=== PATIENT | female | born 1945 | race Caucasian/White ===

== ENCOUNTER → 2016-12-03 | Outpatient (CLI) | payer MEDICARE, OTHER ==
[~2016-12-03] MED LIST: ADVIL200 MG PO; ALIGN4 MG PO; APRESOLINE25 MG PO; ASPIRIN EC81 MG PO; BIOTIN1000 MCG PO; COREG CR80 MG PO; CRESTOR5 MG PO; DIOVAN320 MG PO; K-TAB 10MEQ10 MEQ PO; LEVOTHROID (S125 MCG PO; LYRICA 50MG CAP50 MG PO; MAGOX 400400 MG PO; NORVASC5 MG PO; OMEGA-3 KRILL1 EAC3 PO; ULTRAM50 MG PO; VITAMIN D1000 UNI1 PO; VITAMIN D1000 UNIT PO
[2016-12-03 12:57] LABS: BASOPHIL % 0.3 %; EOSINOPHIL # 0.2 K/uL (0.0-0.5); EOSINOPHIL % 3.2 %; HEMATOCRIT 36.6 % (33.0-46.0); HEMOGLOBIN 11.8 g/dL (10.0-15.0); IMMATURE GRANULOCYTE % 0.5 %; LYMPHOCYTE # 1.6 K/uL (0.8-4.0); LYMPHOCYTE % 25.1 %; MCH 28.4 pg (27.0-34.0); MCHC 32.2 gm/dL (32.0-36.5); MONOCYTE # 0.6 K/uL (0.0-1.0); MONOCYTE % 9.5 %; MPV 9.8 fl (9.4-12.4); NEUTROPHIL % 61.4 %; NRBC % 0 /100WBC (0-0.00); PLATELET COUNT 220 K/uL (150-450); RBC 4.16 M/uL (3.50-5.50); RDW-CV 14.3 % (11.9-14.6); WBC 6.5 K/uL (4.0-11.0)
[2016-12-03 13:16] LABS: INR - (THERAPEUTIC) 0.95 (0.92-1.07)
[2016-12-03 13:20] LABS: ALBUMIN 3.5 gm/dL (3.5-5.0); ALK PHOS 83 IU/L (33-138); ALT 19 IU/L (12-78); ANION GAP 12.8 (10.0-19.0); AST 17 IU/L (10-40); BLOOD UREA NITROGEN 16 mg/dL (6-24); CHLORIDE 105 mMol/L (96-110); CO2 27 mMol/L (22-32); CPK 136 IU/L (21-215); CREATININE 0.9 mg/dL (0.5-1.1); ESTIMATED GFR (MDRD EQUATION) > 60; POTASSIUM 3.8 mMol/L (3.7-5.1); SODIUM 141 mMol/L (135-145); TOTAL BILIRUBIN 0.6 mg/dL (0.0-1.5)
== END | disposition disaster alternative care site (69) ==
LOC: GOPD 11-30 11:30
PROVIDERS: Internal Medicine Geriatric Medicine
PROC: 0Q903ZX Drainage of Lumbar Vertebra, Percutaneous Approach, Diagnostic (ICD-10-PCS; principal; 2016-12-03)
DX: M46.40 Discitis, unspecified, site unspecified (principal); I10 Essential (primary) hypertension; E78.5 Hyperlipidemia, unspecified
CPT/HCPCS: C1751; J0878; J1335; J1644; J2001; J2250; J3010; J7030; J7040